=== PATIENT | female | born 1950 | race Caucasian/White ===

== ENCOUNTER 2018-04-19 15:58 | Inpatient (IN) | payer MEDICARE, OTHER ==
[~2018-04-19] VITALS: Ht 154.9 cm; Wt 86.2 kg
[2018-04-19] MEDS ORDERED: MORPHINE SULFATE INJ 4 MG/ML DISP.SYRIN ONE (16:26)
[2018-04-19] MEDS ORDERED: ONDANSETRON HCL/PF 4 MG/2 ML VIAL ONE (16:26)
[2018-04-19] MEDS: IV NS 0.9% 1,000 ML BAG IV ONE ×2 (16:30→17:04)
[2018-04-19] MEDS ORDERED: MORPHINE SULFATE INJ 2 MG/ML DISP.SYRIN IV ONE (16:30)
[2018-04-19] MEDS ORDERED: ONDANSETRON HCL/PF 4 MG/2 ML VIAL IVP ONE (16:30)
--- NOTE | 2018-04-19 16:55 | NUR ---
PT PRESENTED TO THE ER WITH A C/O LLQ ABD PAIN, N/V, AND NO BM FOR 3 DAYS. PT IS ENGLISH SPEAKING ONLY WITH LIMITED TURKISH. PT IS ON THE MONITOR AND CONTINUOUS PULSE OX. VSS.
[2018-04-19 17:30] LABS: BASOPHILS % (AUTO) 0.2 % (0.0-2.0); HEMATOCRIT 42 % (33-45); HEMOGLOBIN 14.2 g/dL (11.5-14.8); LYMPHOCYTES # (AUTO) 0.8 /CMM (0.8-4.8); LYMPHOCYTES % (AUTO) 4.8 % (20.0-44.0); MEAN CORPUSCULAR HGB CONC 34 g/dl (31.0-36.0); MEAN CORPUSCULAR VOLUME 86 fL (82-100); MONOCYTES # (AUTO) 0.4 /CMM (0.1-1.30); MONOCYTES % (AUTO) 2.7 % (2.0-12.0); NEUTROPHILS # (AUTO) 14.6 /CMM (1.8-8.9); NEUTROPHILS % (AUTO) 92.3 % (43.0-81.0); PLATELET COUNT (AUTO) 288 /CMM (150-450); WHITE BLOOD COUNT (AUTO) 15.8 K/uL (4.3-11.0)
[2018-04-19 17:41] LABS: CARBON DIOXIDE 25 mmol/L (21-32); CHLORIDE 99 mmol/L (98-107); CREATININE 0.8 mg/dL (0.6-1.3); GLUCOSE 164 mg/dL (74-106); POTASSIUM 2.9 mmol/L (3.5-5.1); SODIUM SERUM 133 mmol/L (136-145); UREA NITROGEN, BLOOD 28 mg/dL (7-18)
[2018-04-19 17:47] LABS: ALANINE AMINOTRANSFERASE 19 U/L (12-78); ALBUMIN 3.6 g/dL (3.4-5.0); ALKALINE PHOSPHATASE 65 U/L (46-116); ASPARTATE AMINOTRANSFERASE 17 U/L (15-37); BILIRUBIN,DIRECT 0.1 mg/dL (0.0-0.2); BILIRUBIN,TOTAL 0.7 mg/dL (0.2-1.0); LIPASE 129 U/L (73-393); TOTAL PROTEIN, SERUM 7.2 g/dL (6.4-8.2)
[2018-04-19] MEDS ORDERED: POTASSIUM CHLORIDE 20 MEQ TAB.PRT.SR PO ONE ×4 (18:19→19:30)
[2018-04-19] MEDS ORDERED: POTASSIUM CHLORIDE 10 MEQ/50 ML PREMIXED IVPB FOR PERIPHERAL LINE IV ONE (18:30)
[2018-04-19] MEDS ORDERED: LACTULOSE 10 G/15 ML UDC (PYXIS) PO ONE (18:30)
[2018-04-19] MEDS ORDERED: LACTULOSE 10 G/15 ML UDC (PYXIS) ONE (18:35)
[2018-04-19] MEDS ORDERED: POTASSIUM CL. PREMIX PERIPHER. 50 ML ONE (18:35)
--- NOTE | 2018-04-19 18:49 | NUR ---
DR SMITH CANCELLED IV POTASSIUM AND GAVE A VERBAL ORDER FOR 20MEQ POTASSIUM PO.
[2018-04-19 19:12] LABS: APPEARANCE,URINE Slightly Cloudy (CLEAR); BILIRUBIN,URINE SMALL (NEGATIVE); BLOOD, URINE Negative Ery/uL (NEGATIVE); COLOR,URINE Dark (YELLOW); KETONES,URINE 80 (NEGATIVE); LEUKOCYTE ESTERASE ,URINE Negative (NEGATIVE); NITRITE, URINE Negative (NEGATIVE); PROTEIN,URINE 100 mg/dl (NEGATIVE); UGLUCOSE Negative (NEGATIVE); UROBILINOGEN,URINE 0.2 EU/dL (0.2)
--- NOTE | 2018-04-19 19:16 | NUR ---
PT AMBULATED TO THE BATHROOM WITH A STEADY GAIT.
[2018-04-19 19:29] LABS: RBC,URINE NONE SEEN /HPF (0-2)
[2018-04-19 19:30] LABS: BACTERIA,URINE Few /HPF (None Seen); SQUAMOUS EPITHELIAL CELL,UR Few /HPF (None Seen); WBC,URINE 0-2 /HPF (0-3)
--- NOTE | 2018-04-19 20:15 | NUR ---
PT IS STILL UNABLE TO HAVE A BM.
--- NOTE | 2018-04-19 20:26 | NUR ---
CALLED PT'S DAUGHTER, LOLLY, AT [phone].
--- NOTE | 2018-04-19 20:27 | NUR ---
PT'S DAUGHTER TO FAX MED LIST.
--- NOTE | 2018-04-19 20:32 | NUR ---
PT AMBULATED TO THE [facility] TO TRY AND HAVE A BM
--- NOTE | 2018-04-19 20:40 | NUR ---
CALLING REPORT TO TELE. CRISTHIAN RN
--- NOTE | 2018-04-19 20:40 | NUR ---
PT HAD A SM BOWEL MOVEMENT
--- NOTE | 2018-04-19 21:05 | NUR ---
TELE/RN NOTES RECEIVED PT. FROM ER VIA [facility]. PT. IS AWAKE, ALERT AND ORIENTED X3. BREATHING EVEN AND UNLABORED ON ROOM AIR. NO SOB OR RESPIRATORY DISTRESS NOTED. ORIENTED PT. TO ROOM. PT. COMPLAINING OF ABDOMINAL PAIN. AWAITING ADMITTING ORDERS. WILL ADMINISTER TO PT. PAIN MEDICATION ORDERED. 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 CURRENT RHYTHM = SINUS RHYTHM WITH PVCS HR 81. PT. WITH LEFT FOREARM 22 GAUGE IV SALINE LOCK PRESENT, PATENT AND INTACT. PT. FAMILY MEMBER PRESENT AT BEDSIDE. BED LOCKED AND IN LOWEST POSITION, SIDE RAILS UP X2, CALL LIGHT WITHIN REACH, WILL CONTINUE TO MONITOR.
[2018-04-19] MEDS ORDERED: FLUT1BLS IH (21:12)
[2018-04-19] MEDS ORDERED: LEVO50TA8 PO (21:12)
[2018-04-19] MEDS ORDERED: SPIR25TA6 PO (21:12)
[2018-04-19] MEDS ORDERED: CLON0.1T PO (21:12)
[2018-04-19] MEDS ORDERED: DICL100G16 TP (21:12)
[2018-04-19] MEDS ORDERED: ICOS1CAP PO (21:12)
[2018-04-19] MEDS ORDERED: SITA1TAB2 PO (21:12)
[2018-04-19] MEDS ORDERED: BUPR-51 PO (21:12)
[2018-04-19] MEDS ORDERED: LORA1TAB PO (21:12)
[2018-04-19] MEDS ORDERED: OLME1TAB22 PO (21:12)
[2018-04-19] MEDS ORDERED: ASPI-1152 PO (21:12)
[2018-04-19] MEDS ORDERED: CIPR500T5 PO (21:12)
[2018-04-19] MEDS ORDERED: PHEN-894 PO (21:12)
[2018-04-19] MEDS ORDERED: MYRBETRIQ PO (21:12)
[2018-04-19] MEDS ORDERED: NALT50TA PO (21:12)
[2018-04-19] MEDS ORDERED: DULA0.75 SQ (21:12)
[2018-04-19] MEDS ORDERED: ROSU10TA2 PO (21:12)
[2018-04-19] MEDS ORDERED: CARV12.52 PO (21:12)
[2018-04-19] MEDS ORDERED: IV NS 0.9% 1,000 ML IV PRN (22:16)
[2018-04-19] MEDS ORDERED: DEXTROSE 50%-WATER 50 ML DISP.SYRIN IV PRN (22:30)
[2018-04-19] MEDS ORDERED: ONDANSETRON HCL/PF 4 MG/2 ML VIAL IVP PRN (22:30)
[2018-04-19] MEDS ORDERED: NA PHOS,M-B/NA PHOS,DI-BA 1 EA ENEMA RC PRN (22:30)
[2018-04-19] MEDS ORDERED: MAGNESIUM CITRATE 296 ML BOTTLE PO ONE (22:30)
[2018-04-19] MEDS ORDERED: LACTULOSE 10 G/15 ML UDC (PYXIS) PO PRN (22:30)
[2018-04-19] MEDS ORDERED: Z GUARD REMEDY 2 OZ OINT TP PRN (22:30)
[2018-04-19] MEDS ORDERED: INSULIN REGULAR, HUMAN 100 UNIT/ML 3 ML VIAL SQ PRN (22:30)
[2018-04-19] MEDS ORDERED: ACETAMINOPHEN 325 MG TABLET PO PRN (22:30)
[2018-04-19] MEDS: BLOOD SUGAR DIAGNOSTIC 1 EACH STRIP IN SCH (23:13)
--- NOTE | 2018-04-20 04:05 | NUR ---
TELE/RN NOTES PT. REFUSING 0400 VITAL SIGNS STATING SHE WANTS TO BE LEFT ALONE TO SLEEP. WILL CONTINUE TO MONITOR.
--- NOTE | 2018-04-20 06:09 | NUR ---
TELE/RN NOTES PT. IS LYING IN BED RESTING. BREATHING EVEN AND UNLABORED ON ROOM AIR. NO SOB OR RESPIRATORY DISTRESS OR COMPLAINTS OF PAIN NOTED AT THIS. PT. WITH EXTERNAL ANIMAL THERAPIST PRESENT AND INTACT CURRENT RHYTHM = SINUS RHYTHM WITH PVCS HR 81. PT. WITH LEFT FOREARM 22 GAUGE IV SALINE LOCK PRESENT, PATENT AND INTACT. PT. REFUSING IV FLUIDS AT THIS TIME. ALL PT. NEEDS MET. BED LOCKED AND IN LOWEST POSITION, SIDE RAILS UP X2, CALL LIGHT WITHIN REACH, WILL ENDORSE TO DAYSHIFT NURSE FOR CONTINUITY OF CARE.
[2018-04-20] MEDS: BLOOD SUGAR DIAGNOSTIC 1 EACH STRIP IN SCH ×4 (06:52→21:50)
[2018-04-20 07:43] LABS: BASOPHILS % (AUTO) 0.1 % (0.0-2.0); HEMATOCRIT 43 % (33-45); HEMOGLOBIN 14.2 g/dL (11.5-14.8); LYMPHOCYTES # (AUTO) 1.4 /CMM (0.8-4.8); LYMPHOCYTES % (AUTO) 6.7 % (20.0-44.0); MEAN CORPUSCULAR HGB CONC 33 g/dl (31.0-36.0); MEAN CORPUSCULAR VOLUME 87 fL (82-100); MONOCYTES # (AUTO) 0.9 /CMM (0.1-1.30); MONOCYTES % (AUTO) 4.1 % (2.0-12.0); NEUTROPHILS # (AUTO) 18.7 /CMM (1.8-8.9); NEUTROPHILS % (AUTO) 89.1 % (43.0-81.0); PLATELET COUNT (AUTO) 277 /CMM (150-450); RED BLOOD CELL COUNT(AUTO) 4.91 MIL/uL (4.0-5.2)
[2018-04-20 07:51] LABS: ALBUMIN 3.3 g/dL (3.4-5.0); BILIRUBIN,TOTAL 0.8 mg/dL (0.2-1.0); CALCIUM, SERUM 8.2 mg/dL (8.5-10.1); CREATININE 0.8 mg/dL (0.6-1.3); MAGNESIUM 1.6 mg/dL (1.8-2.4); PHOSPHORUS 2.6 mg/dL (2.5-4.9); POTASSIUM 3.1 mmol/L (3.5-5.1); TOTAL PROTEIN, SERUM 6.9 g/dL (6.4-8.2)
[2018-04-20 08:00] VITALS: BP 154/68
--- NOTE | 2018-04-20 08:00 | NUR ---
TELE/RN AM NOTES PT. IS LYING IN BED RESTING. BREATHING EVEN AND UNLABORED ON ROOM AIR. NO SOB OR RESPIRATORY DISTRESS OR COMPLAINTS OF PAIN NOTED.PT. WITH EXTERNAL AUTOMOBILE APPRAISER PRESENT AND INTACT CURRENT RHYTHM = SINUS RHYTHM WITH PVCS HR 81. PT. WITH LEFT FOREARM 22 GAUGE IV SALINE LOCK PRESENT, PATENT AND INTACT. PT. REFUSING IV FLUIDS AT THIS TIME SAYING IT'S BOTHERING HER SLEEP . BED LOCKED AND IN LOWEST POSITION, SIDE RAILS UP X2, CALL LIGHT WITHIN REACH,
[2018-04-20] MEDS: BUPROPION XL 150 MG TAB.ER.24 PO SCH (09:00)
[2018-04-20] MEDS: ENOXAPARIN SODIUM 40 MG/0.4 ML DISP.SYRIN SQ SCH ×2 (09:00→10:12)
[2018-04-20] MEDS: SPIRONOLACTONE 25 MG TABLET PO SCH (10:09)
[2018-04-20] MEDS: LOSARTAN POTASSIUM 50 MG TABLET PO SCH (10:09)
[2018-04-20] MEDS: LEVOTHYROXINE SODIUM 50 MCG TABLET PO SCH (10:09)
[2018-04-20] MEDS: ASPIRIN EC 81 MG TABLET.DR PO SCH (10:09)
[2018-04-20] MEDS: CARVEDILOL 12.5 MG TABLET PO SCH ×2 (10:10→17:00)
[2018-04-20] MEDS: CLONIDINE HCL 0.1 MG TABLET PO SCH (10:10)
[2018-04-20] MEDS: LINAGLIPTIN 5 MG TABLET PO SCH (10:10)
[2018-04-20] MEDS: FLUTICASONE/VILANTEROL 1 EACH BLST.W.DEV IH SCH (10:11)
[2018-04-20] MEDS: Magnesium 1GM/D5W 100ML PREMIX 100 ML IV SCH ×2 (10:27→11:52)
[2018-04-20] MEDS ORDERED: POTASSIUM CHLORIDE 20 MEQ TAB.PRT.SR PO ONE (10:30)
--- NOTE | 2018-04-20 12:06 | NUR ---
BLOOD SUGAR 175-PT REFUSED INSULIN.LOVENOX SQ ADMINISTERED AT 1012 AND IT CONTINUES TO HIGHLIGHT IN EMAR.INFORMED PHARMACIST. Addendum: 04/20/18 at 1247 by CAMILA DORADO RN ADMINISTERED LOVENOX SQ ON TODAY'S DATE 04/20/18 AT 1012.
[2018-04-20 16:00] VITALS: BP 84/50
--- NOTE | 2018-04-20 16:05 | NUR ---
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
[2018-04-20 17:29] VITALS: BP 106/53
--- NOTE | 2018-04-20 18:00 | NUR ---
TELE/RN CLOSING NOTE Patient is A/O x 4. Patient is in stable condition. Shows no signs of distress. Patient reports 3/10 pain in abdomen. Patient is able to ambulate without any assistance. Patient needs are attended to and call light is within reach. Will endore to next shift for continuity of care.
--- NOTE | 2018-04-20 19:30 | NUR ---
RN MS OPENING NOTES RECEIVED PT IN BED, SLEEPING, EASILY AROUSED TO NAME CALL. BREATHING EVEN AND UNLABORED ON ROOM AIR, NO SOB, COUGH OR CONGESTION. IV ACCESS DISCONTINUED. NO COMPLAINT OF PAIN OR DISCOMFORT AT THE TIME. BED IN LOWEST LOCKED POSITION,CALL LIGHT WITHIN REACH AT ALL TIMES, WILL CONTINUE TO MONITOR.
[2018-04-20 20:00] VITALS: BP 122/70
[2018-04-20] MEDS ORDERED: ATORVASTATIN 40 MG TABLET PO SCH (22:00)
[2018-04-21 06:02] VITALS: BP 122/70
--- NOTE | 2018-04-21 06:07 | NUR ---
RN MS CLOSING NOTES PT REMAINS IN BED, SLEEPING, EASILY AROUSED TO NAME CALL. BREATHING EVEN AND UNLABORED ON ROOM AIR, NO SOB, COUGH OR CONGESTION. IV ACCESS DISCONTINUED. NO COMPLAINT OF PAIN OR DISCOMFORT AT THE TIME. BG OF 125 NO INSULIN NEEDED, ALL NEEDS ATTENDED TO. BED IN LOWEST LOCKED POSITION,CALL LIGHT WITHIN REACH AT ALL TIMES, WILL ENDORSE TO DAY TIME NURSE
[2018-04-21] MEDS: BLOOD SUGAR DIAGNOSTIC 1 EACH STRIP IN SCH (06:40)
[2018-04-21 07:32] LABS: BASOPHILS % (AUTO) 0.4 % (0.0-2.0); EOSINOPHILS % (AUTO) 0.1 % (0.0-6.0); HEMATOCRIT 36 % (33-45); HEMOGLOBIN 12.1 g/dL (11.5-14.8); LYMPHOCYTES # (AUTO) 1.8 /CMM (0.8-4.8); LYMPHOCYTES % (AUTO) 14.7 % (20.0-44.0); MEAN CORPUSCULAR HGB CONC 33 g/dl (31.0-36.0); MEAN CORPUSCULAR VOLUME 87 fL (82-100); MONOCYTES # (AUTO) 0.7 /CMM (0.1-1.30); MONOCYTES % (AUTO) 6.2 % (2.0-12.0); NEUTROPHILS # (AUTO) 9.4 /CMM (1.8-8.9); NEUTROPHILS % (AUTO) 78.6 % (43.0-81.0); PLATELET COUNT (AUTO) 241 /CMM (150-450); RED BLOOD CELL COUNT(AUTO) 4.19 MIL/uL (4.0-5.2)
[2018-04-21 07:41] LABS: CREATININE 0.7 mg/dL (0.6-1.3); MAGNESIUM 2.4 mg/dL (1.8-2.4); POTASSIUM 3.6 mmol/L (3.5-5.1)
[2018-04-21 08:00] VITALS: BP 120/71
--- NOTE | 2018-04-21 08:00 | NUR ---
MS/RN AM NOTES PT. IS LYING IN BED RESTING. BREATHING EVEN AND UNLABORED ON ROOM AIR. NO SOB OR RESPIRATORY DISTRESS OR COMPLAINTS OF PAIN NOTED.AMBULATES ALONG THE HALLWAY.BED LOCKED AND IN LOWEST POSITION, SIDE RAILS UP X2, CALL LIGHT WITHIN REACH,
[2018-04-21] MEDS: BUPROPION XL 150 MG TAB.ER.24 PO SCH (09:00)
[2018-04-21] MEDS: FLUTICASONE/VILANTEROL 1 EACH BLST.W.DEV IH SCH (09:25)
[2018-04-21] MEDS: ASPIRIN EC 81 MG TABLET.DR PO SCH (09:25)
[2018-04-21] MEDS: CARVEDILOL 12.5 MG TABLET PO SCH (09:25)
[2018-04-21] MEDS: LEVOTHYROXINE SODIUM 50 MCG TABLET PO SCH (09:25)
[2018-04-21] MEDS: SPIRONOLACTONE 25 MG TABLET PO SCH (09:25)
[2018-04-21 09:26] VITALS: BP 120/71
[2018-04-21] MEDS: CLONIDINE HCL 0.1 MG TABLET PO SCH (09:26)
[2018-04-21] MEDS: LINAGLIPTIN 5 MG TABLET PO SCH (09:26)
[2018-04-21] MEDS: LOSARTAN POTASSIUM 50 MG TABLET PO SCH (09:26)
[2018-04-21] MEDS: ENOXAPARIN SODIUM 40 MG/0.4 ML DISP.SYRIN SQ SCH (09:34)
--- NOTE | 2018-04-21 12:01 | NUR ---
DISCHARGED PT HOME WITH STABLE V/S-DENYING ANY PAIN OR DISTRESS.DISCHARGE INSTRUCTIONS GIVEN.AMBULATING ALONG THE HALLWAY ACCOMPANIED BY HER DAUGHTER.
== END 2018-04-21 12:00 | disposition home or self-care (01) | DRG 391 ==
LOC: ER 15:58 → TELE 20:26 → MED 04-20 11:24
PROVIDERS: ADMIT Nurse Practitioner Acute Care; ATTEND Family Medicine
DX: K59.00 Constipation, unspecified (principal); N17.0 Acute kidney failure with tubular necrosis; E87.1 Hypo-osmolality and hyponatremia; E86.0 Dehydration; E87.6 Hypokalemia; I25.10 Atherosclerotic heart disease of native coronary artery without angina pectoris; I10 Essential (primary) hypertension; E83.42 Hypomagnesemia; F41.9 Anxiety disorder, unspecified; K21.9 Gastro-esophageal reflux disease without esophagitis; E86.1 Hypovolemia; D72.829 Elevated white blood cell count, unspecified; E11.9 Type 2 diabetes mellitus without complications; Z79.84 Long term (current) use of oral hypoglycemic drugs; Z90.49 Acquired absence of other specified parts of digestive tract; Z86.010 Personal history of colon polyps
CPT/HCPCS: 36415; 80048-TC; 80053-TC; 80061-TC; 80076-TC; 81000-TC; 82962-TC; 83690-TC; 83735-TC; 84100-TC; 84484-TC; 85025-TC; 85730-TC; 87081-TC; G0378; J1650; J1815; J2270; J2405; J3475; J3480; J7030